=== PATIENT | male | born 1980 | race Caucasian/White ===

== ENCOUNTER 2020-08-21 14:49 | Emergency (ER) | payer OTHER, SELFPAY ==
--- NOTE | 2020-08-21 15:05 | ED.MALEGU ---
HPI - Male Genitourinary General Chief complaint: Urogenital-Male Stated complaint: ?std Time Seen by Provider: 08/21/20 15:04 History of Present Illness HPI Narrative: Patient complains of penile sores that appeared over the last several days they are mildly painful and burning, denies any discharge denies any dysuria, no abdominal pain no nausea or vomiting Related Data Previous Rx's Medication Instructions Recorded valacyclovir [Valtrex] 1,000 mg PO BID 10 Days #20 tab 08/21/20 Allergies Allergy/AdvReac Type Severity Reaction Status Date / Time No Known Allergies Allergy Verified 08/21/20 15:13 Review of Systems Review of Systems: Positive for penile lesions Negatives are no fever no chills no dizziness no weakness no chest pain no abdominal pain no nausea vomiting or diarrhea no dysuria no discharge no testicular pain or swelling no flank pain no other skin rash Yes all other systems are reviewed and are negative [facility] Past Medical History Source: nursing notes reviewed Medical History (Updated 08/22/20 @ 00:01 by Ruperto Carrion) No known health problems Social History Social History Advance Directives: No Advance Directives Information Provided: Yes Physical Exam Vital Signs: Vital Signs: Last Vital Signs Temp 98.5 F 08/21/20 15:11 Pulse 80 08/21/20 15:11 Resp 18 08/21/20 15:11 BP 108/75 08/21/20 15:11 Pulse Ox 98 08/21/20 15:11 Body Mass Index 27.4 General appearance is no acute distress The neck is supple The pharynx is clear without any lesions Respiratory no distress Abdomen soft nontender Genital exam there is no discharge there is no testicular swelling On penile shaft there are several small vesicular lesions and 1 larger papule, no ulcerations, no evidence of abscess or cellulitis Skin no other rash Course Course Course Narrative: Patient is treated for herpes and tested for GC chlamydia and syphilis and advised to follow up with [facility] and given the number MDM - Male Genitourinary Lab Data Labs: Lab Results 08/21/20 08/21/20 Range/Units 15:43 15:45 T.pallidum Ab (EIA) Nonreactive (Nonreactive) Chlam trachomat DNA PCR NOT DETECTED (Not Detect.) N.gonorrhoeae DNA (PCR) NOT DETECTED (Not Detect.) Discharge Plan Discharge Clinical Impression: Genital herpes Patient Disposition: Home, Self-Care Additional Instructions: From examination I believe the problem is genital herpes so we are treating with Valtrex [facility] [phone] No sexual activity until treatment is completed and all sores are gone Your partner should follow in [facility] as well for examination and possibly testing Return any time any concerns We will call you if syphilis test or gonorrhea chlamydia test come back positive Prescriptions: New valacyclovir [Valtrex] 1 gram tablet 1,000 mg PO BID 10 Days Qty: 20 RF: 0 Interventions: ED Discharge Assessment Last Done: 08/21/20 15:54 Discharge Date/Time: 08/21/20 15:55
[2020-08-21 15:11] VITALS: BP 108/75; PULSE 80; RESP 18; TEMP 36.9; O2SAT 98; BMI 27.4
[2020-08-21 16:44] LABS: Syphilis Screen Nonreactive (Nonreactive)
[2020-08-22 10:41] LABS: CT PCR NOT DETECTED (Not Detect.); NG PCR NOT DETECTED (Not Detect.)
== END 2020-08-21 15:55 | disposition home or self-care (01) ==
PROVIDERS: Physician Assistant Medical; Emergency Provider Emergency Medicine
DX: A60.01 Herpesviral infection of penis (principal); Z20.2 Contact with and (suspected) exposure to infections with a predominantly sexual mode of transmission
CPT/HCPCS: 36415; 86780; 87491; 87591; 99283

== ENCOUNTER 2022-11-18 18:32 | Emergency (ER) | payer OTHER, SELFPAY ==
--- NOTE | ~2022-11-18 | US_ITS ---
EXAMINATION: US SCROTUM CLINICAL INFORMATION: Pain/swelling. COMPARISON: None available. TECHNIQUE: A sonogram of the scrotum was performed assessing dotson-scale appearance and color Doppler flow. Spectral Doppler analysis of the arterial and venous flow were performed in the testes bilaterally. FINDINGS: RIGHT: Right testicle measures 5 x 2.4 x 2 cm, volume 13 mL. No focal testicular parenchymal lesions are visualized. Spectral Doppler analysis of the arterial and venous flow is normal in the right testis. Right epididymal head is normal in size. No right hydrocele or varicocele is seen. Right epididymal Doppler flow is normal. LEFT: Left testicle measures 5 x 2.9 x 3 cm, volume 25 mL. No focal testicular parenchymal lesions are visualized. Spectral Doppler analysis of the arterial and venous flow is increased in the left testis. Left epididymal head is increased in size. No left hydrocele or varicocele is seen. Left epididymal Doppler flow is increased. ADDITIONAL FINDINGS: Fat-containing left-sided inguinal hernia. US/US scrotum IMPRESSION: Increased size as well as vascularity of the left testicle and epididymis suggestive of epididymoorchitis in the appropriate clinical context.
--- NOTE | ~2022-11-18 | US_ITS ---
EXAMINATION: US SCROTUM CLINICAL INFORMATION: Pain/swelling. COMPARISON: None available. TECHNIQUE: A sonogram of the scrotum was performed assessing dotson-scale appearance and color Doppler flow. Spectral Doppler analysis of the arterial and venous flow were performed in the testes bilaterally. FINDINGS: RIGHT: Right testicle measures 5 x 2.4 x 2 cm, volume 13 mL. No focal testicular parenchymal lesions are visualized. Spectral Doppler analysis of the arterial and venous flow is normal in the right testis. Right epididymal head is normal in size. No right hydrocele or varicocele is seen. Right epididymal Doppler flow is normal. LEFT: Left testicle measures 5 x 2.9 x 3 cm, volume 25 mL. No focal testicular parenchymal lesions are visualized. Spectral Doppler analysis of the arterial and venous flow is increased in the left testis. Left epididymal head is increased in size. No left hydrocele or varicocele is seen. Left epididymal Doppler flow is increased. ADDITIONAL FINDINGS: Fat-containing left-sided inguinal hernia. US/US scrotum doppler IMPRESSION: Increased size as well as vascularity of the left testicle and epididymis suggestive of epididymoorchitis in the appropriate clinical context.
[2022-11-18 19:22] VITALS: BP 94/64; PULSE 71; RESP 16; TEMP 37; O2SAT 97; BMI 24.0
--- NOTE | 2022-11-18 19:22 | ED.GENADULT ---
HPI - General Adult General Chief complaint: General Medical Stated complaint: Testicle pain Time Seen by Provider: 11/19/22 02:44 Source: patient Mode of arrival: ambulatory Limitations: no limitations History of Present Illness HPI narrative: Patient been having left testicular pain with swelling for last 10 days no history of STDs no urinary symptoms no history of testicular infection in the past no penile discharge Related Data Previous Rx's Medication Instructions Recorded valacyclovir 1 gram tablet 1,000 mg PO BID 10 days #20 tabs 08/21/20 (Valtrex) doxycycline hyclate 100 mg tablet 100 mg PO BID #20 tabs 11/19/22 ibuprofen 600 mg tablet 600 mg PO Q6H PRN fever or pain 11/19/22 #30 tabs levofloxacin 500 mg tablet 500 mg PO DAILY 10 days #10 tabs 11/19/22 Allergies Allergy/AdvReac Type Severity Reaction Status Date / Time No Known Allergies Allergy Verified 08/21/20 15:13 Review of Systems Review of Systems: Yes all other systems are reviewed and are negative [facility] Past Medical History Medical History No known health problems Social History Social History Advance Directives: No Advance Directives Information Provided: No Physical Exam ED Vital Signs: Vital Signs - 24 hr 11/18/22 19:22 Temperature 98.6 F Pulse Rate 71 Respiratory Rate 16 Blood Pressure 94/64 Pulse Oximetry 97 Oxygen Delivery Method Room Air BMI result Body Mass Index 24.0 Appearance: Alert. Oriented X3. No acute distress. Neck: Normal inspection. Neck supple. CVS: Normal heart rate and rhythm. Pulses normal. Respiratory: No respiratory distress. Equal air entry bilateral, Abdomen: Soft and nontender. Bowel sounds are present, no mass palpable, no CVA tenderness Neuro: Oriented X 3. Male genitals images: 1. Swollen left testicle and epididymis area no penile discharge Course Course Course Narrative: This is a rapid medical exam: Additional HPI, ROS, PE not included below will be deferred to primary provider. Patient is a 41-year-old male presenting to the emergency department with complaint of left testicular pain for over a week. States it was swollen which has improved, but is still painful and feels a mass. Area not visualized in triage due to privacy concerns. Denies penile discharge. Plan: UA, CT NG, U/S Medications Administered Discontinued Medications Generic Name Dose Route Start Last Admin Trade Name Tamela PRN Reason Stop Dose Admin Ceftriaxone Sodium 500 mg/ 0 mg 11/19/22 02:46 11/19/22 03:03 Lidocaine HCl 1 ml IM 11/19/22 02:47 1 kit ONCE ONE Administration Doxycycline Monohydrate 100 mg 11/19/22 02:45 11/19/22 03:05 Doxycycline Monohydrate 100 Mg Capsule PO 11/19/22 02:46 100 mg ONCE ONE Administration Levofloxacin 500 mg 11/19/22 02:45 11/19/22 03:04 Levofloxacin 500 Mg Tablet PO 11/19/22 02:46 500 mg ONCE ONE Administration Medical Decision Making Medical Decision Making [facility] Narrative: Patient with L epididymo-orchitis nondiabetic patient afebrile, nontoxic, was given Rocephin 500 mg IM Levaquin and doxycycline discharge advised to follow with urologist ER if gets worse patient GC and chlamydia were negative Lab Data [facility] Lab Attestation statement: I reviewed the patient's lab results. Labs: Lab Results 11/19/22 11/19/22 Range/Units 02:21 02:21 Urine Color Yellow Urine Appearance Clear Urine pH 6.0 (5.0-9.0) Ur Specific [place] >= 1.030 H (1.005-1.025) Urine Protein Trace (Neg-Trace) mg/dL Urine Glucose (UA) Negative (Negative) mg/dL Urine Ketones Trace (Negative) mg/dL Urine Blood Negative (Negative) Urine Nitrite Negative (Negative) Ur Leukocyte Esterase Small (1+) H (Negative) Urine RBC 0-2 (0-2) /HPF Urine WBC 21-50 H (0-5) /HPF Ur Squamous Epith Cells 0-2 (0-2) /HPF Urine Bacteria None Seen (None Seen) Hyaline Casts 0-2 (0-2) /LPF Chlam trachomat DNA PCR NOT DETECTED (Not Detect.) N.gonorrhoeae DNA (PCR) NOT DETECTED (Not Detect.) Discharge Plan Discharge Clinical Impression: Epididymitis, left Patient Disposition: Home, Self-Care Instructions: Epididymo-Orchitis (ED) Additional Instructions: Scrotal support as advised Take antibiotic as prescribed Follow with urologist Report to ER if pain gets worse Prescriptions: New levofloxacin 500 mg tablet 500 mg PO DAILY 10 Days Qty: 10 0RF ibuprofen 600 mg tablet 600 mg PO Q6H PRN (Reason: fever or pain) Qty: 30 0RF doxycycline hyclate 100 mg tablet 100 mg PO BID Qty: 20 0RF No Action valacyclovir [Valtrex] 1 gram tablet 1,000 mg PO BID 10 Days Qty: 20 0RF Referrals: Ian Mckeon MD [Physician] - 10 days Interventions: ED Discharge Assessment Last Done: 11/19/22 04:16 Discharge Date/Time: 11/19/22 04:16
[2022-11-19 02:31] LABS: Appearance Urine Clear; Color Urine Yellow; Glucose Urine UA Negative (Negative); Leukocyte Esterase Urine Small (1+) (Negative); Nitrite Urine Negative (Negative); Specific Gravity - Urine >= 1.030 (1.005-1.025); UMIC TRIGGER UACC YES; Urine Blood Negative (Negative); Urine Ketones Trace mg/dL (Negative); Urine Protein Trace mg/dL (Neg-Trace)
[2022-11-19] MEDS: cefTRIAXone sodium 500 MG, Lidocaine HCl 1 % MPF 1 ML IM (03:03)
[2022-11-19] MEDS: levoFLOXacin 500 MG TABLET PO (03:04)
[2022-11-19] MEDS: Doxycycline Monohydrate 100 MG CAPSULE PO (03:05)
[2022-11-19 03:06] LABS: Bacteria Urine None Seen (None Seen); Hyaline Casts Urine 0-2 /LPF (0-2); RBC Urine 0-2 /HPF (0-2); Squamous Epithelial Cell Urine 0-2 /HPF (0-2); UACC Culture Trigger YES; WBC Urine 21-50 /HPF (0-5)
[2022-11-19 04:14] LABS: CT PCR NOT DETECTED (Not Detect.); NG PCR NOT DETECTED (Not Detect.)
== END 2022-11-19 04:16 | disposition home or self-care (01) ==
PROVIDERS: Registered Nurse Emergency; Emergency Provider Internal Medicine
DX: N45.3 Epididymo-orchitis (principal); N50.812 Left testicular pain
CPT/HCPCS: 0353U; 76870; 81001; 87086; 93975; 96372; 99282; 99284; J0696

== ENCOUNTER 2023-08-25 13:09 | Emergency (ER) | payer SELFPAY ==
[2023-08-25 13:36] VITALS: BP 133/85; PULSE 88; RESP 18; TEMP 37.1; O2SAT 100; BMI 23.8
--- NOTE | 2023-08-25 13:36 | ED.GENADULT ---
HPI - General Adult General Chief complaint: General Medical Stated complaint: nose pain Time Seen by Provider: 08/25/23 15:06 Source: patient Mode of arrival: ambulatory Limitations: language barrier ( Maldivian-speaking freelance interpreter/translator utilized) History of Present Illness HPI narrative: Patient is a 42-year-old male who presents to the emergency department for evaluation of intranasal pain for 6 months. 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 He also admits to having rhinorrhea. He denies any fevers or chills or additional recreational intranasal drug usage. Additionally, he presents with concern for a lesion to his penis. reports there is single area with clear drainage, states he has had something similar in the past. Does not know what caused it. Concern for sexually transmitted infection. Related Data Previous Rx's ?Medication ?Instructions ?Recorded valacyclovir 1 gram tablet 1,000 mg PO BID 10 days #20 tabs 08/21/20 (Valtrex) doxycycline hyclate 100 mg tablet 100 mg PO BID #20 tabs 11/19/22 ibuprofen 600 mg tablet 600 mg PO Q6H PRN fever or pain 11/19/22 #30 tabs levofloxacin 500 mg tablet 500 mg PO DAILY 10 days #10 tabs 11/19/22 mupirocin 2 % topical ointment 1 appl topical TID #15 grams 08/25/23 valacyclovir 1 gram tablet 1,000 mg PO TID #21 tabs 08/25/23 Allergies Allergy/AdvReac Type Severity Reaction Status Date / Time No Known Allergies Allergy Verified 08/25/23 13:40 Review of Systems Review of Systems: Yes all other systems are reviewed and are negative PMFSH Past Medical History Attestation statement: The following information was validated with the patient. Source: old records reviewed Medical History No known health problems Social History Social History Advance Directives: No Advance Directives Information Provided: Yes Physical Exam ED Vital Signs: Vital Signs - 24 hr 08/25/23 13:36 Temperature 98.7 F Pulse Rate 88 Respiratory Rate 18 Blood Pressure 133/85 Pulse Oximetry 100 Oxygen Delivery Method Room Air BMI result Body Mass Index 23.8 Appearance: Alert.?Oriented to person, place and time. No acute distress.?Normal affect. Eyes: Pupils equal, round and reactive to light.? ENT: Pharynx normal.?? Necrosis of the septum bilaterally, no apparent perforation, erythematous intranasal mucosa. Neck: Normal inspection.? Neck supple.?? CVS: Heart sounds normal. Normal heart rate and rhythm.? Pulses normal.?? Respiratory: No respiratory distress.? Lung sounds clear to auscultation bilaterally?? Abdomen: Soft and non-tender. 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 Normal skin color.? Extremities: No lower extremity edema.? Neuro: Moves all extremities spontaneously. Sensation intact bilaterally.Ambulates with normal steady gait. Course Course Course Narrative: This is a rapid medical exam performed by Elvira Shea NP: Additional HPI, ROS, PE not included below will be deferred to primary provider. Patient is a 42-year-old male presenting to the emergency department complaining of pain in his nose for the past 6 months due to cocaine use. Also complaining of lesion to penis. Area not visualized in triage due to privacy concerns. Plan: CT NG urine, UA Medical Decision Making Medical Decision Making [facility] Narrative: patient is a 42-year-old male who presents to the emergency department for evaluation of 2 different complaints. Intranasal pain in the setting of recurrent intranasal cocaine usage. On exam has significant necrosis to the bilateral septum though no apparent perforation is present. Patient was advised strongly to discontinue intranasal cocaine usage as this will only further worsen his symptoms and complicate his current condition. Advised topical mupirocin and outpatient follow-up with ENT. He verbalized understanding of the severity of this condition. His genital examination is most concerning for herpes simplex virus, upon review of his record he has had a history of genital herpes in the past, this does not appear consistent with a chancre, no active discharge from the penile meatus. Testing for chlamydia and gonorrhea have resulted as negative. Sent a prescription for valacyclovir to pharmacy in instructed on abstinence and recommendation for recent sexual partners to be tested and/or treated. All questions answered. Stable For discharge. Differential Diagnosis Differential Diagnoses: The differential diagnosis associated with the presentation includes ( As noted above) Lab Data [facility] Lab Attestation statement: I reviewed the patient's lab results. ( as noted above) Labs: Lab Results 08/25/23 Range/Units 14:19 Urine Color Yellow Urine Appearance Clear Urine pH 6.0 (5.0-9.0) Ur Specific [place] 1.015 (1.005-1.025) Urine Protein Negative (Neg-Trace) mg/dL Urine Glucose (UA) Negative (Negative) mg/dL Urine Ketones Negative (Negative) mg/dL Urine Blood Negative (Negative) Urine Nitrite Negative (Negative) Ur Leukocyte Esterase Negative (Negative) Chlam trachomat DNA PCR NOT DETECTED (Not Detect.) N.gonorrhoeae DNA (PCR) NOT DETECTED (Not Detect.) External Record Review External record reviewed: Outpatient record Prescription Management I considered prescription management with: Antibiotic Discharge Plan 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 Refrain from sexual intercourse until your treatment is completed and the lesions are gone. Your testing today for chlamydia and gonorrhea were negative. Regarding your nose, the septum has become necrotic from excessive intranasal cocaine usage. It is recommended that you stop using intranasal cocaine as this will only further worsen the necrosis and your pain. A prescription for a topical antibiotic ointment was sent to your pharmacy. You may apply this to the septum on both sides. Please contact the ENT specialist for further outpatient follow-up. Prescriptions: New valacyclovir 1 gram tablet 1,000 mg PO TID Qty: 21 0RF mupirocin 2 % ointment 1 appl topical TID Qty: 15 0RF No Action valacyclovir [Valtrex] 1 gram tablet 1,000 mg PO BID 10 Days Qty: 20 0RF levofloxacin 500 mg tablet 500 mg PO DAILY 10 Days Qty: 10 0RF ibuprofen 600 mg tablet 600 mg PO Q6H PRN (Reason: fever or pain) Qty: 30 0RF doxycycline hyclate 100 mg tablet 100 mg PO BID Qty: 20 0RF Referrals: Silas Clarke [Physician] - Print Language: Maldivian
[2023-08-25 14:28] LABS: Appearance Urine Clear; Color Urine Yellow; Glucose Urine UA Negative (Negative); Leukocyte Esterase Urine Negative (Negative); Nitrite Urine Negative (Negative); Specific Gravity - Urine 1.015 (1.005-1.025); Urine Blood Negative (Negative); Urine Ketones Negative (Negative); Urine Protein Negative (Neg-Trace)
[2023-08-25 15:55] LABS: CT PCR NOT DETECTED (Not Detect.); NG PCR NOT DETECTED (Not Detect.)
--- NOTE | 2023-08-25 16:17 | PC.NURSE ---
Eval by DIRECTOR CLINICAL OPERATIONS, cleared for DC home.
[2023-08-25 16:26] VITALS: BP 133/85; PULSE 88; RESP 18; TEMP 37.1; O2SAT 100
== END 2023-08-25 16:27 | disposition home or self-care (01) ==
PROVIDERS: Registered Nurse Emergency; Emergency Provider Student in an Organized Health Care Education/Training Program
DX: J34.0 Abscess, furuncle and carbuncle of nose (principal); A60.00 Herpesviral infection of urogenital system, unspecified; J34.89 Other specified disorders of nose and nasal sinuses; F14.10 Cocaine abuse, uncomplicated; Z79.899 Other long term (current) drug therapy
CPT/HCPCS: 0353U; 81003; 99282; 99283

== ENCOUNTER 2023-12-03 09:06 | Emergency (ER) | payer OTHER, SELFPAY ==
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
[2023-12-03 09:08] VITALS: PULSE 90; O2SAT 94
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
[2023-12-03 09:23] VITALS: BP 122/71; PULSE 78; RESP 19; TEMP 36.4; O2SAT 99; BMI 21.8
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
[2023-12-03] MEDS: Acetaminophen 325 MG TABLET 975 MG PO (09:37)
[2023-12-03] MEDS: oxyCODONE HCl Immed Release 5 MG TABLET PO (09:37)
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
[2023-12-03 09:59] LABS: MANUAL DIFF FLAG NO
[2023-12-03 10:01] LABS: Basophils Absolute Auto 0.1 X10*3/uL (0.0-0.2); Basophils Percent Auto 0.7 % (0-2); Eosinophils Absolute Auto 0.1 X10*3/uL (0.0-0.4); Eosinophils Percent Auto 0.9 % (0-4); Hemoglobin 12.2 g/dl (14.0-18.0); Imm Gran Abs Auto 0.04 X10*3/uL (0.00-0.03); Imm Gran Pct Auto 0.3 % (0.0-0.4); Lymphocytes Absolute Auto 1.3 X10*3/uL (1.2-4.9); Lymphocytes Percent Auto 9.3 % (20-40); Mean Corpuscular Hemoglobin 26.3 pg (27.0-33.0); Mean Corpuscular Volume 79.7 fL (80.0-98.0); Mean Platelet Volume 9.7 fL (9.4-12.4); Monocytes Absolute Auto 0.8 X10*3/uL (0.1-1.2); Monocytes Percent Auto 5.4 % (2-11); Neutrophils Absolute Auto 11.5 x10*3/uL (2.0-8.3); Neutrophils Percent Auto 83.4 % (45-73); Platelet Count 302 X10*3/uL (160-400); Red Blood Count 4.64 X10*6/uL (4.60-5.80); Red Cell Distribution Width 14.4 % (11.0-16.0); White Blood Count 13.8 X10*3/uL (4.8-10.8)
[2023-12-03] MEDS: Piperacillin Sodium/Tazobactam 3.375 GM in 0.9 % Sodium Chloride 50 ML IV (10:08)
[2023-12-03 10:13] LABS: C Reactive Protein 2.23 mg/dL (< or = 0.50)
--- NOTE | 2023-12-03 10:14 | PC.NURSE ---
patient demanding food, multiple attempts to educate patient that he cannot eat until after his CT scan, no evidence of learning
[2023-12-03 10:18] LABS: Alanine Aminotransferase 13 U/L (0-40); Albumin Level 4.4 g/dL (3.5-5.0); Alkaline Phosphatase 161 U/L (39-117); Anion Gap 15 (12-20); Aspartate Amino Transferase 26 U/L (5-37); Bilirubin Total 0.4 mg/dL (0.0-1.0); Blood Urea Nitrogen 20 mg/dL (9-16); Calcium 9.7 mg/dL (8.4-10.2); Carbon Dioxide 25 mmol/L (22-29); Chloride 103 mmol/L (96-108); Estimated Glomerular Filt Rate > 60; Glucose Random 95 mg/dL (60-115); Lipase 6 U/L (8-78); Magnesium 2.4 mg/dL (1.6-2.6); Potassium 4.3 mmol/L (3.3-5.1); Sodium 139 mmol/L (135-145); Total Protein 8.3 g/dL (6.5-8.0)
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
[2023-12-03 10:27] VITALS: BP 122/71; PULSE 78; RESP 19; TEMP 36.4; O2SAT 99
[2023-12-03] MEDS: iohexoL 350 MG/ML 75 ML INFUS..BTL 85 ML IV (10:31)
[2023-12-03 10:34] LABS: Erythrocyte Sedimentation Rate 15 MM/HR (0-15)
== END 2023-12-03 10:46 ==
PROVIDERS: Physician Assistant; Emergency Provider Emergency Medicine
DX: R60.0 Localized edema (principal); M79.605 Pain in left leg; F11.10 Opioid abuse, uncomplicated; F10.10 Alcohol abuse, uncomplicated; Y90.9 Presence of alcohol in blood, level not specified; Z79.899 Other long term (current) drug therapy
CPT/HCPCS: 36415; 73701; 80053; 83690; 83735; 85025; 85652; 86140; 93971; 96374; 96375; 99284; J2543; Q9967

== ENCOUNTER 2024-01-31 20:44 | Emergency (ER) | payer MEDICAID, SELFPAY ==
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
[2024-01-31 21:00] VITALS: BP 139/76; PULSE 97; RESP 18; TEMP 36.6; O2SAT 99; BMI 21.8
[2024-02-01] VITALS: BP 120/80; PULSE 86; RESP 17; TEMP 36.8; O2SAT 100
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
[2024-02-01 02:51] LABS: MANUAL DIFF FLAG NO
[2024-02-01 02:52] LABS: Basophils Absolute Auto 0.1 X10*3/uL (0.0-0.2); Basophils Percent Auto 0.8 % (0-2); Eosinophils Absolute Auto 0.8 X10*3/uL (0.0-0.4); Eosinophils Percent Auto 5.8 % (0-4); Hematocrit 39.2 % (42.0-52.0); Hemoglobin 12.7 g/dl (14.0-18.0); Imm Gran Abs Auto 0.06 X10*3/uL (0.00-0.03); Imm Gran Pct Auto 0.4 % (0.0-0.4); Lymphocytes Absolute Auto 2.7 X10*3/uL (1.2-4.9); Lymphocytes Percent Auto 19.1 % (20-40); Mean Corpuscular HGB Conc 32.4 g/dl (31.0-36.0); Mean Corpuscular Hemoglobin 26.2 pg (27.0-33.0); Mean Corpuscular Volume 80.8 fL (80.0-98.0); Monocytes Absolute Auto 0.6 X10*3/uL (0.1-1.2); Monocytes Percent Auto 4.4 % (2-11); Neutrophils Absolute Auto 9.9 x10*3/uL (2.0-8.3); Neutrophils Percent Auto 69.5 % (45-73); Platelet Count 200 X10*3/uL (160-400); Red Blood Count 4.85 X10*6/uL (4.60-5.80); Red Cell Distribution Width 17.8 % (11.0-16.0); White Blood Count 14.3 X10*3/uL (4.8-10.8)
[2024-02-01 02:55] VITALS: BP 116/66; PULSE 86; RESP 16; TEMP 36.7; O2SAT 98
[2024-02-01 03:17] LABS: Alanine Aminotransferase 12 U/L (0-40); Albumin Level 4.2 g/dL (3.5-5.0); Alkaline Phosphatase 153 U/L (39-117); Anion Gap 12 (12-20); Aspartate Amino Transferase 11 U/L (5-37); Bilirubin Direct < 0.2 mg/dL (0.0-0.5); Bilirubin Total 0.2 mg/dL (0.0-1.0); Blood Urea Nitrogen 12 mg/dL (9-16); C Reactive Protein 0.58 mg/dL (< or = 0.50); Calcium 9.6 mg/dL (8.4-10.2); Carbon Dioxide 29 mmol/L (22-29); Chloride 104 mmol/L (96-108); Creatinine Clr Calc Pharmacy 100.2; Estimated Glomerular Filt Rate > 60; Glucose Random 101 mg/dL (60-115); Potassium 4.3 mmol/L (3.3-5.1); Sodium 141 mmol/L (135-145); Total Protein 7.3 g/dL (6.5-8.0)
[2024-02-01 03:24] LABS: Erythrocyte Sedimentation Rate 7 MM/HR (0-15)
[2024-02-01 03:26] VITALS: BP 0/0; PULSE 0; RESP 20; TEMP -17.7; TEMP 0; O2SAT 0
== END 2024-02-01 03:27 | disposition home or self-care (01) ==
PROVIDERS: Emergency Provider Emergency Medicine
DX: M79.662 Pain in left lower leg (principal)
CPT/HCPCS: 36415; 73590; 80048; 80076; 85025; 85652; 86140; 99283; 99284

== ENCOUNTER 2024-06-23 23:31 | Emergency (ER) | payer OTHER, SELFPAY ==
--- NOTE | ~2024-06-23 | XR_ITS ---
CLINICAL HISTORY: fall 4 view left knee Comparison: X-rays of the left tibia and fibula from 02/01/2024 Findings: Redemonstration of the fracture and angulation of the proximal tibial locking screw with interim surrounding bony remodeling. No acute hardware loosening of tibial diaphysis intramedullary nail, with mild remodeling with chronic lucency about the proximal diaphysis. Developing mild tricompartment osteoarthritis of the left knee. Ojqpgdqn-um-vzgzj effusion present. No displaced fracture or dislocation involving left knee. IMPRESSION: 1. Dirijqxm-cm-mmpgu effusion of the left knee. 2. Developing mild osteoarthritis of the left knee. 3. No acute fracture This document has been electronically signed by: Jaycob Gregory MD on 06/24/2024 02:58:44
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
[2024-06-23 23:35] VITALS: BP 125/80; PULSE 97; RESP 18; TEMP 36.8; O2SAT 99; BMI 23.4
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
[2024-06-24] MEDS: Ibuprofen 600 MG TABLET PO (00:58)
[2024-06-24 02:07] VITALS: BP 125/80; PULSE 97; RESP 18; TEMP 36.8; O2SAT 99
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
== END 2024-06-24 02:32 | disposition home or self-care (01) ==
PROVIDERS: Emergency Provider Internal Medicine
DX: S93.402A Sprain of unspecified ligament of left ankle, initial encounter (principal); X50.9XXA Other and unspecified overexertion or strenuous movements or postures, initial encounter; M79.662 Pain in left lower leg; Y93.39 Activity, other involving climbing, rappelling and jumping off; Y92.9 Unspecified place or not applicable; Y99.9 Unspecified external cause status
CPT/HCPCS: 73564; 73600; 99283

== ENCOUNTER → 2024-06-24 00:51 | Outpatient (BNV) | payer OTHER, SELFPAY | PROVIDERS: Emergency Provider Internal Medicine; Visit Provider Radiology Neuroradiology | DX: M25.462 Effusion, left knee (principal) | CPT/HCPCS: 73564 ==